=== PATIENT | female | born 1965 | race Caucasian/White ===

== ENCOUNTER 2022-12-09 07:37 | Day surgery (SDC) | payer OTHER, SELFPAY ==
[2022-12-09 08:08] VITALS: BP 118/77; PULSE 89; RESP 17; TEMP 36.3; O2SAT 97; BMI 94.7
[2022-12-09] MEDS: LACTATED RINGERS 1,000 ML 84 ML IV (08:19)
--- NOTE | 2022-12-09 08:43 | P.HP_ITS ---
History of Present Illness History of Present Illness Date Patient Seen: 12/09/22 Chief complaint: SDC Narrative: Screening colonoscopy at a 10 year interval FOR[facility], [facility] Medical History (Updated 12/09/22 @ 07:58 by Vanesa Black RN) Afibrinogenemia following molar or ectopic DDD (degenerative disc disease), cervical Fusion of lumbar spine Hard of hearing HTN (hypertension) Hypothyroid Kidney stones Morbid obesity Surgical History (Updated 12/09/22 @ 07:58 by Vanesa Black RN) History of tubal ligation Social History household members: family Smoking Status: Never smoker alcohol intake: never Meds Home Medications and Allergies Home Medications Medication Instructions Recorded Confirmed Type clobetasol 0.05 % lotion 0.05 applic topical PRN PRN eczema 12/09/22 12/09/22 History ergocalciferol (vitamin D2) 1,250 1,250 mcg PO QWEEK 12/09/22 12/09/22 History mcg (50,000 unit) capsule (Vitamin D2) gabapentin 300 mg tablet 300 mg PO DAILY 12/09/22 12/09/22 History levothyroxine 75 mcg tablet 75 mcg PO DAILY 12/09/22 12/09/22 History losartan 25 mg tablet 25 mg PO DAILY 12/09/22 12/09/22 History sulindac 200 mg tablet 200 mg PO BID 12/09/22 12/09/22 History triamcinolone aceton-0.9% NaCl 0.1 topical PRN PRN Rash 12/09/22 History triamterene-hydrochlorothiazid 75 mg PO DAILY 12/09/22 12/09/22 History Allergies Allergy/AdvReac Type Severity Reaction Status Date / Time No Known Drug Allergies Allergy Verified 12/09/22 08:00 Exam Vital Signs (past 8 hours): - 12/09/22 08:08 Temperature 97.3 F L Pulse Rate 89 Respiratory Rate 17 Blood Pressure 118/77 Pulse Oximetry 97 Oxygen Delivery Method Room Air Oxygen Delivery Method Room Air Narrative Exam Narrative: Oropharynx free of lesions Chest clear to auscultation percussion Cardiac exam reveals no S3 or murmur Assessment & Plan Assessment & Plan narrative: Screening colonoscopy to 10 year interval. Risks, benefits, alternatives have been explained.
--- NOTE | 2022-12-09 08:44 | PM.OP.COLON ---
Operative Date/Time/Diagnoses Date of procedure: 12/09/22 Pre-op diagnosis: See indication and findings Procedure & Clinicians Study performed: Colonoscopy Indications: Screening colonoscopy Surgeon: Adis Lares Procedure Notes Procedure in detail: After informed consent was obtained the patient was placed in left lateral decubitus position. The video colonoscope was introduced the rectum slowly advanced cecum. Preparation was good. On slow withdrawal mucosa was carefully examined. The scope was removed. The patient tolerated procedure well. Blood loss none Complications none Sedation mac Findings 1. Normal colonoscopy to cecum Patient should have follow-up colonoscopy in 10 years.
[2022-12-09 09:11] VITALS: BP 96/66; PULSE 77; RESP 15; TEMP 36.1; O2SAT 97
[2022-12-09 09:16] VITALS: BP 105/69; PULSE 71; RESP 18; O2SAT 98
[2022-12-09 09:23] VITALS: BP 89/63; PULSE 92; RESP 12; TEMP 36.6; O2SAT 98
[2022-12-09 09:24] VITALS: BP 106/63; PULSE 75; RESP 25; O2SAT 95
== END 2022-12-09 09:50 | disposition home or self-care (01) ==
PROVIDERS: Referring Provider Internal Medicine Gastroenterology; Visit Provider Internal Medicine Gastroenterology
PROC: 0DJD8ZZ Inspection of Lower Intestinal Tract, Via Natural or Artificial Opening Endoscopic (ICD-10-PCS; CPT 45378; principal; 2022-12-09 08:30)
DX: Z12.11 Encounter for screening for malignant neoplasm of colon (principal); K75.81 Nonalcoholic steatohepatitis (NASH); I10 Essential (primary) hypertension; E03.9 Hypothyroidism, unspecified
CPT/HCPCS: 45378